=== PATIENT | male | born 1930 | race Caucasian/White ===

== ENCOUNTER → 2018-12-05 | Outpatient (CLI) | payer MEDICARE, OTHER ==
[~2018-12-05] MED LIST: ASA81 MG PO; CETIRIZINE PO; FINASTERIDE5 MG PO; GADOBENATE DIMEGLUMINE 1 ML IV ONE; PREDNISOLONE5 MG; VITAMIN B-121000 MCG PO; VITAMIN D35000 UNIT PO; Z.0.PLAVIX75 MG PO; Z.0.PRAVACHOL40 MG PO; ZYRTEC10 M3 PO
--- NOTE | 2018-12-05 14:44 | Diagnostic Imaging Report ---
MRI SPINE LUMBAR WOW HISTORY: Low back pain, history of prostate cancer COMPARISON: Report from lumbar spine MRI dated 10/31/2015 (images not available at time of dictation) TECHNIQUE: Multiplanar, multisequence MRI of the lumbar spine was performed without and with intravenous contrast. 17 mL of MultiHance were administered. DISCUSSION: Number of non-rib bearing lumbar vertebral bodies: 5. Alignment: Normal lordosis. No scoliosis. Vertebrae: Diffuse fatty marrow replacement in the lower lumbar spine and pelvis may be due to postradiation change; this can be correlated with patient's history. A 1.5 cm T1 hypointense, STIR hyperintense, enhancing nodular lesion in the posterior L4 vertebral body is suspicious for a metastasis. The lesion abuts the posterior cortex without significant epidural extension. Nonspecific mild inflammatory endplate changes are seen at L2-L3. No other suspicious focal marrow lesions are seen. No vertebral compression deformities are seen. Conus medullaris: Normal, ends at L2. Cauda equina: No masses or arachnoiditis. Posterior paraspinal muscles: Well preserved. There is mild left paraspinal muscle edema at the lumbosacral junction. Soft tissues: The bladder is mildly distended with mild diffuse wall thickening. A few small T2 hyperintense bilateral renal lesions are likely cysts Mild multilevel disc degeneration is superimposed on a congenitally narrow lumbar spinal canal. T12-L1: Disc bulge without significant canal or foraminal stenosis. L1-L2: Disc bulge without significant canal or foraminal stenosis. L2-L3: Apparent laminectomy changes without significant central canal stenosis. Mild bilateral foraminal stenoses due to disc bulge and facet arthrosis. L3-L4: Mild canal stenosis due to disc bulge and ligamentum flavum thickening. Mild bilateral foraminal stenoses due to disc bulge and facet arthrosis. L4-L5: Mild canal stenosis due to disc bulge and ligamentum flavum thickening. Mild bilateral foraminal stenoses due to disc bulge and facet arthrosis. There is mild periarticular edema and enhancement along the bilateral L4-L5 facet joints. L5-S1: Mild bilateral foraminal stenoses due to disc bulge and facet arthrosis. No significant canal stenosis. IMPRESSION: 1. Approximately 1.5 cm enhancing nodular lesion in the posterior L4 vertebral body is suspicious for a metastasis. 2. Diffuse fatty marrow replacement may be due to postradiation change; this can be correlated with patient's history. 3. Otherwise, no additional suspicious focal marrow lesions. No evidence for acute fracture. 4. Mild multilevel disc degeneration with nonspecific mild inflammatory endplate changes at L2-L3. This is superimposed on a congenitally narrow lumbar spinal canal. 5. Apparent laminectomy changes at L2-L3. 6. 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 7. Mild multilevel bilateral degenerative foraminal stenoses. 8. Suspected mild bilateral L4-L5 facet synovitis. Signed by: Dr. Zaid Villegas M.D. on 12/05/2018 2:41 PM
== END ==
LOC: MRI 09:23
DX: M54.40 Lumbago with sciatica, unspecified side (principal); C61 Malignant neoplasm of prostate
CPT/HCPCS: 72158; A9577

== ENCOUNTER → 2018-12-27 | Outpatient (CLI) | payer MEDICARE, OTHER ==
[~2018-12-27] MED LIST changes: -GADOBENATE DIMEGLUMINE 1 ML IV ONE
--- NOTE | 2018-12-27 17:45 | Diagnostic Imaging Report ---
Bone Scan, delayed phase INDICATION: C61 Malignant neoplasm of prostate. 88 M also complains of worsening back pain over past several weeks. COMPARISON: MRI lumbar spine 12/05/2018 REPORT: Approximately 3 hours following intravenous administration of 25 mCi of Tc-99m MDP, delayed total body images in the anterior and posterior projections and selected spot images were obtained. Note: The patient was not able to adequately empty his bladder on voids immediately prior to imaging; the full bladder obscures the superior pubic rami. The sacrum can be adequately assessed on lateral projections Distribution of tracer activity is unremarkable throughout the skeletal system. No abnormal accumulation of tracer is seen in L4 to correspond to the suspicious lesion seen on recent MRI. No abnormal accumulation of tracer is seen in the soft tissues or renal collecting systems. IMPRESSION: No scan evidence of metastatic bone disease. No osteoblastic lesion in L4 to correspond to suspicious lesion seen on recent MRI. Signed by: Dr. Yris Redd M.D. on 12/27/2018 5:41 PM
== END ==
LOC: NM 07:59
PROVIDERS: ATTEND Internal Medicine Medical Oncology
DX: C79.51 Secondary malignant neoplasm of bone (principal); Z85.46 Personal history of malignant neoplasm of prostate
CPT/HCPCS: 78306; A9503

== ENCOUNTER → 2019-02-15 | Outpatient (CLI) | payer MEDICARE, OTHER ==
[~2019-02-15] MED LIST changes: +GADOBENATE DIMEGLUMINE 1 ML IV ONE
[2019-02-15 08:09] LABS: BLOOD UREA NITROGEN 15 mg/dL (7-26); BUN/CREATININE RATIO 17 (6-25); CREATININE, SERUM 0.89 mg/dL (0.72-1.25); EST GLOMERULAR FILTRATION RATE > 60 ML/MIN (60-)
--- NOTE | 2019-02-15 11:37 | Diagnostic Imaging Report ---
MRI SPINE LUMBAR WOW HISTORY: L4 lesion; history of prostate cancer COMPARISON: MRI of the lumbar spine 12/05/2018 TECHNIQUE: Multiplanar, multisequence MRI of the lumbar spine was performed without and with intravenous contrast. DISCUSSION: Number of non-rib bearing lumbar vertebral bodies: 5. Alignment: Normal lordosis. No scoliosis. Vertebrae: Diffuse fatty marrow replacement in the lower lumbar spine and pelvis may be due to postradiation change; this can be correlated with patient's history. A 1.5 cm T1 hypointense, STIR hyperintense, enhancing nodular lesion in the posterior L4 vertebral body is suspicious for a metastasis. The lesion abuts the posterior cortex without significant epidural extension. This has not significantly changed. Nonspecific mild inflammatory endplate changes are seen at L2-L3. No other suspicious focal marrow lesions are seen. No vertebral compression deformities are seen. Conus medullaris: Normal, ends at L2. Cauda equina: No masses or arachnoiditis. Posterior paraspinal muscles: Well preserved. There is mild paraspinal muscle edema at the lumbosacral junction. Soft tissues: The bladder is mildly distended with mild diffuse wall thickening. A few small T2 hyperintense bilateral renal lesions are likely cysts Mild multilevel disc degeneration is superimposed on a congenitally narrow lumbar spinal canal. T12-L1: Disc bulge without significant canal or foraminal stenosis. L1-L2: Disc bulge without significant canal or foraminal stenosis. L2-L3: Apparent laminectomy changes without significant central canal stenosis. Mild bilateral foraminal stenoses due to disc bulge and facet arthrosis. L3-L4: Mild canal stenosis due to disc bulge and ligamentum flavum thickening. Mild bilateral foraminal stenoses due to disc bulge and facet arthrosis. L4-L5: Mild canal stenosis due to disc bulge and ligamentum flavum thickening. Mild bilateral foraminal stenoses due to disc bulge and facet arthrosis. There is mild periarticular edema and enhancement along the bilateral L4-L5 facet joints. L5-S1: Mild bilateral foraminal stenoses due to disc bulge and facet arthrosis. No significant canal stenosis. IMPRESSION: 1. Unchanged 1.5 cm enhancing nodular lesion in the posterior L4 vertebral body is suspicious for a metastasis. 2. Diffuse fatty marrow replacement may be due to postradiation change; this can be correlated with patient's history. 3. Otherwise, no additional suspicious focal marrow lesions. No evidence for acute fracture. 4. Mild multilevel disc degeneration with nonspecific mild inflammatory endplate changes at L2-L3. This is superimposed on a congenitally narrow lumbar spinal canal. Apparent laminectomy changes at L2-L3. 5. 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 Mild multilevel bilateral degenerative foraminal stenoses. 6. Suspected mild bilateral L4-L5 facet synovitis. Signed by: Dr. Zaid Villegas M.D. on 02/15/2019 11:34 AM
== END ==
LOC: MRI 06:50
PROVIDERS: ATTEND Internal Medicine Medical Oncology
DX: M89.9 Disorder of bone, unspecified (principal); Z85.46 Personal history of malignant neoplasm of prostate
CPT/HCPCS: 36415; 72158; 82565; 84520; A9577